=== PATIENT | male | born 1980 | race Caucasian/White ===

== ENCOUNTER 2020-12-21 15:18 | Inpatient (IN) | payer MEDICARE ==
[~2020-12-21] VITALS: Ht 172.7 cm; Wt 101.6 kg
[2020-12-21 16:03] LABS: HEMOGLOBIN 11.8 gm/dl (14.0-17.5); RED BLOOD COUNT 3.96 M/UL (4.20-5.50); WHITE BLOOD COUNT 3.6 K/UL (4.5-11.0)
[2020-12-21] MEDS ORDERED: VIRTUSSIN AC 1118 ML PO (17:38)
[2020-12-21] MEDS ORDERED: ALBUTEROL2.5 MG/3 M NEB (17:40)
[2020-12-21] MEDS ORDERED: MONTELUKAST SOD10 MG PO (17:41)
[2020-12-21] MEDS ORDERED: ZITHROMAX250 MG PO (17:41)
[2020-12-21] MEDS ORDERED: MUCUS RELIEF600 MG PO (17:42)
[2020-12-21] MEDS ORDERED: ZINC50 MG PO (17:43)
[2020-12-21] MEDS ORDERED: ZETIA10 MG PO (17:44)
[2020-12-21] MEDS ORDERED: CELLCEPT250 MG PO (17:49)
[2020-12-21] MEDS ORDERED: HUMALOG100 UNIT/1 SC (17:50)
[2020-12-21] MEDS ORDERED: PROGRAF0.5 MG PO (17:51)
[2020-12-22 05:17] LABS: HEMOGLOBIN 11.7 gm/dl (14.0-17.5); RED BLOOD COUNT 3.96 M/UL (4.20-5.50); WHITE BLOOD COUNT 3.9 K/UL (4.5-11.0)
[2020-12-22] MEDS ORDERED: OMNIPOD1 EACH SQ (16:58)
[2020-12-22] MEDS ORDERED: VITAMIN D21250 MCG PO (16:59)
[2020-12-23 09:11] LABS: HEMOGLOBIN 12.5 gm/dl (14.0-17.5); RED BLOOD COUNT 4.19 M/UL (4.20-5.50)
[2020-12-23 09:12] LABS: WHITE BLOOD COUNT 6.4 K/UL (4.5-11.0)
[2020-12-24 07:25] LABS: RED BLOOD COUNT 4.02 M/UL (4.20-5.50); WHITE BLOOD COUNT 6.3 K/UL (4.5-11.0)
[2020-12-25 04:11] LABS: HEMOGLOBIN 12.3 gm/dl (14.0-17.5); RED BLOOD COUNT 4.23 M/UL (4.20-5.50)
[2020-12-25 12:35] LABS: RED BLOOD COUNT 4.02 M/UL (4.20-5.50)
[2020-12-26 03:16] LABS: HEMOGLOBIN 10.9 gm/dl (14.0-17.5)
[2020-12-26 03:22] LABS: RED BLOOD COUNT 3.61 M/UL (4.20-5.50); WHITE BLOOD COUNT 12.6 K/UL (4.5-11.0)
[2020-12-26] MEDS ORDERED: LOPRESSOR 25 MG25 MG PO (11:09)
[2020-12-26] MEDS ORDERED: LANTUS INS100 UTS/M1 SC (11:09)
[2020-12-26] MEDS ORDERED: HYDROCODON-ACE1 EAC4 PO (11:09)
== END 2020-12-26 12:48 | disposition short-term general hospital (02) | DRG 871 ==
LOC: ER1 15:18 → CDU 17:34 → PROG CARE 17:34 → CCU 12-25 12:35
PROVIDERS: Family Medicine; Internal Medicine; Internal Medicine Nephrology; Nurse Practitioner Family; ADMIT Internal Medicine
PROC: XW033E5 Introduction of Remdesivir Anti-infective into Peripheral Vein, Percutaneous Approach, New Technology Group 5 (ICD-10-PCS; 2020-12-21)
PROC: B24BZZZ Ultrasonography of Heart with Aorta (ICD-10-PCS; 2020-12-23)
PROC: 5A1935Z Respiratory Ventilation, Less than 24 Consecutive Hours (ICD-10-PCS; principal; 2020-12-25)
PROC: 0BH17EZ Insertion of Endotracheal Airway into Trachea, Via Natural or Artificial Opening (ICD-10-PCS; 2020-12-25)
PROC: XW13325 Transfusion of Convalescent Plasma (Nonautologous) into Peripheral Vein, Percutaneous Approach, New Technology Group 5 (ICD-10-PCS; 2020-12-25)
PROC: 3E033XZ Introduction of Vasopressor into Peripheral Vein, Percutaneous Approach (ICD-10-PCS; 2020-12-25)
PROC: 06HM33Z Insertion of Infusion Device into Right Femoral Vein, Percutaneous Approach (ICD-10-PCS; 2020-12-25)
PROC: 5A12012 Performance of Cardiac Output, Single, Manual (ICD-10-PCS; 2020-12-25)
DX: A41.89 Other specified sepsis (principal); U07.1 COVID-19; J12.82 Pneumonia due to coronavirus disease 2019; J96.01 Acute respiratory failure with hypoxia; R65.21 Severe sepsis with septic shock; I46.9 Cardiac arrest, cause unspecified; I21.A1 Myocardial infarction type 2; N17.0 Acute kidney failure with tubular necrosis; N18.4 Chronic kidney disease, stage 4 (severe); E87.2 Acidosis; D61.818 Other pancytopenia; D84.9 Immunodeficiency, unspecified; Z94.0 Kidney transplant status; Z94.83 Pancreas transplant status; I13.10 Hypertensive heart and chronic kidney disease without heart failure, with stage 1 through stage 4 chronic kidney disease, or unspecified chronic kidney disease; E11.22 Type 2 diabetes mellitus with diabetic chronic kidney disease; I25.10 Atherosclerotic heart disease of native coronary artery without angina pectoris; I95.9 Hypotension, unspecified; E86.0 Dehydration; R43.8 Other disturbances of smell and taste; Z79.82 Long term (current) use of aspirin; Z95.5 Presence of coronary angioplasty implant and graft; Z91.041 Radiographic dye allergy status; Z79.4 Long term (current) use of insulin
CPT/HCPCS: ECHO; 0240U; 31500; 36415; 36430; 36600; 71045; 80048; 80053; 80197; 81001; 82009; 82550; 82553; 82803; 82962; 83605; 83874; 83880; 84484; 85025; 85610; 85730; 86850; 86900; 86901; 86927; 87040; 92950; 93005; 93306; 94002; 94003; 94640; 94664; 94760; 96365; 96375; 99285; J0696; J1100; J1644; J1650; J2060; J2185; J2250; J2370; J2704; J7030; J7050; J7070; J9181; P9047